=== PATIENT | female | born 1950 | race Caucasian/White ===

== ENCOUNTER → 2016-09-18 | Outpatient (CLI) | payer OTHER ==
[~2016-09-18] MED LIST: ALLERGY RELIEF1 EACH PO; AMLODIPINE BESYL5 MG PO; ASPIRIN81 M2 PO; CALCIUM 600 + D1 TA1 PO; CO Q10100 MG PO; COMBIVENT U/D3 M2 INH; GINKGO60 MG PO; LIPITOR40 MG PO; LISINOPRIL20 MG PO; MULTI VITAMIN1 EACH PO; NAPROSYN500 MG PO; OMEGA 3 FISH OI1 CAP PO; REQUIP0.5 MG PO; VITAMIN D1000 UNIT PO
--- NOTE | ~2016-09-18 | CT137 ---
[facility] A Service of [facility] RADIOLOGY TEXT RESULTS PATIENT: EBONY GONZALEZ LOCATION: [facility] : 50 UNIT #: [id number] AGE: [address]: Julius Webber MD SEX: F ORDER DR: [id number] [facility] [address] [place], [place] [address] [id number] O MR#: [id number] Acc #: [id number] NAME: EBONY GONZALEZ : 1950 SEX: F STUDY DATE/TIME: 09/18/2016 12:56 UNIT: [facility] ROOM: STUDY DESCRIPTION: CT Lung Screening annual Attending Physician: Julius Webber M.D. Referring Physician: Julius Webber M.D. Ordering Physician: Julius Webber M.D. Primary Care Physician: Julius Webber M.D. MEDICAL IMAGING REPORT This report is preliminary unless electronic signature is present EXAM CT chest INDICATION Lung cancer screening. 66-year-old female is a former smoker with a 51 pack year history of smoking. Less than 1 year smoking cessation. TECHNIQUE CT of the chest without contrast. Coronal and sagittal reconstructions were obtained. This CT exam was performed with one or more of the following radiation dose reduction techniques: automatic exposure control, adjustment of mA and/or kV according to patient size, and iterative reconstruction. COMPARISON CT chest, 07/12/2015 FINDINGS This is a benign lung cancer screening. There is a borderline enlarged right suprahilar lymph node measuring 0.9 cm in short axis. This is unchanged from the prior CT of 07/12/2015. No new pulmonary nodules. Central airways are patent. There is mild emphysema. No enlarged mediastinal lymph nodes. No pericardial or pleural effusion. Patient has subglandular silicone breast implants. IMPRESSION Benign lung cancer screening. ACR Lung-RADS 2: Benign examination. RECOMMENDATIONS [facility] A Service of [facility] RADIOLOGY TEXT RESULTS PATIENT: EBONY GONZALEZ LOCATION: [facility] : 50 UNIT #: [id number] AGE: [address]: Julius Webber MD SEX: F ORDER DR: Annual lung cancer screening with low-dose chest CT. No enlarged mediastinal nodes. No pericardial or pleural effusion. Thoracic aorta is normal in caliber. No acute osseous abnormalities. Dictated by... Lewis Brooke M.D. THIS IS AN ELECTRONICALLY VERIFIED REPORT Lewis Brooke M.D. at 09/19/2016 3:10 PM DEANNA/[place] TD: 09/19/2016 10:34 JOB #: [id number] MEDICAL IMAGING REPORT Page 1 of 1 COPY
== END | disposition home or self-care (01) ==
LOC: CCAT 12:31
DX: Z87.891 Personal history of nicotine dependence (principal)
CPT/HCPCS: G0297

== ENCOUNTER → 2016-10-21 | Outpatient (CLI) | payer OTHER ==
--- NOTE | ~2016-10-21 | XA30 ---
[facility] A Service of [facility] RADIOLOGY TEXT RESULTS PATIENT: EBONY GONZALEZ LOCATION: [facility] : 50 UNIT #: [id number] AGE: [address]: Edvin Granda MD SEX: F ORDER DR: [id number] [facility] [address] [place], [place] [address] [id number] O MR#: [id number] Acc #: [id number] NAME: EBONY GONZALEZ : 1950 SEX: F STUDY DATE/TIME: 10/21/2016 14:00 UNIT: [facility] ROOM: STUDY DESCRIPTION: XA Arthrocentesis Major Joint Attending Physician: Edvin Granda M.D. Referring Physician: Edvin Granda M.D. Ordering Physician: Edvin Granda M.D. Primary Care Physician: Julius Webber M.D. MEDICAL IMAGING REPORT This report is preliminary unless electronic signature is present PROCEDURE Fluoroscopically guided left hip joint injection. INDICATIONS Left hip pain, osteoarthritis. The fluoro time was 0.3 minutes. The reference air kerma is 23 mGy. Risks, benefits and alternatives of the procedure were discussed with the patient. Informed consent was obtained. In procedure room, time-out was performed confirming correct patient and procedure. All elements of maximum sterile-barrier technique utilized according to guidelines appropriate for the procedure. TECHNIQUE/FINDINGS Skin overlying the left hip was prepped and draped in the usual sterile fashion. 1% lidocaine was utilized to anesthetize the skin and underlying subcutaneous tissues. Next, under fluoroscopic guidance, a 22-gauge needle was advanced into the hip joint space. A small amount of contrast injected confirming satisfactory positioning. Next, 2 mL of 40 mg/mL Depo-Medrol followed by 3 mL of bupivacaine was injected into the hip joint space. Needle was removed and a sterile dressing was applied. No immediate complications. Pre-procedure pain 6, postprocedure pain 0. IMPRESSION Technically successful fluoroscopically guided left hip joint injection with steroid and local anesthetic. Dictated by... Caleb Marshall M.D. THIS IS AN ELECTRONICALLY VERIFIED REPORT Caleb Marshall M.D. at 10/22/2016 5:31 PM [facility] A Service of [facility] RADIOLOGY TEXT RESULTS PATIENT: EBONY GONZALEZ LOCATION: [facility] : 50 UNIT #: [id number] AGE: [address]: Edvin Granda MD SEX: F ORDER DR: Fermín TD: 10/22/2016 11:15 JOB #: [id number] MEDICAL IMAGING REPORT Page 1 of 1 COPY
== END | disposition home or self-care (01) ==
LOC: CIVR 13:48
PROC: 3E0U33Z Introduction of Anti-inflammatory into Joints, Percutaneous Approach (ICD-10-PCS; principal; 2016-10-21)
DX: M16.12 Unilateral primary osteoarthritis, left hip (principal)
CPT/HCPCS: 77002; J1030; Q9967

== ENCOUNTER → 2016-11-14 | Day surgery (SDC) | payer OTHER ==
--- NOTE | ~2016-11-14 | OR ---
Unit #: [id number] #: [id number] Patient: EBONY GONZALEZ [id number] [facility]. [place] [id number] [facility]. [place], [place] [address] [id number] O MR#: [id number] NAME: EBONY GONZALEZ ROOM: Date of Procedure: 11/14/2016 Admission Date: 11/14/2016 Surgeon: Everett Nice Jr., M.D. : 1950 Attending Physician: Everett Nice Jr., M.D. Primary Care Physician: Julius Webber M.D. OPERATIVE REPORT INDICATIONS FOR PROCEDURE The patient is a 66-year-old white female, who was recently referred to the office complaining of a nodular mass of the right upper arm posteriorly, this has been causing some discomfort and pain and slowly enlarging in size. She is brought in this time for excision of this under local anesthesia. PREOPERATIVE DIAGNOSIS Painful nodular mass of the right upper arm. POSTOPERATIVE DIAGNOSIS Painful nodular mass of the right upper arm noting approximately 1.5 to 2 cm mass with surrounding subcutaneous tissue. ANESTHESIA 1% Xylocaine with epinephrine locally. PROCEDURE PERFORMED Excision nodular mass, right upper outer arm. DESCRIPTION OF PROCEDURE The patient was positioned in left lateral decubitus position. After being prepped and draped in routine fashion, she was anesthetized locally in the area of the mass which was marked in the holding room. She was locally anesthetized with 1% Xylocaine with epinephrine. An elliptical incision was made around the mass with the incision being approximately 2 inch in length. This was carried down through subcutaneous tissue with a #10-blade scalpel down to the deeper subcutaneous tissue close to the fascia of the muscle. After the mass was removed, it was sent to pathology. Hemostasis was achieved with Bovie cautery. Deeper tissue approximated with interrupted 3-0 Vicryl sutures. Skin edges approximated with stainless-steel skin clips and skin stapling device. Sterile dressings were applied externally. Estimated blood loss minimal less than 20 mL. The patient received no fluids during the procedure. Sponges and instrument counts were correct x3. No drains used. No complications. The patient was taken to the recovery room with stable vital signs in satisfactory condition. Dictated by... Everett Nice Jr., M.D. Unit #: [id number] #: [id number] Patient: EBONY GONZALEZ/jett TD: 11/14/2016 11:30 JOB #: [id number] CC: Julius Webber M.D. OPERATIVE REPORT Page 1 of 1 X Everett Nice MD X PROCEDURE OPERATIVE NOTE
== END | disposition home or self-care (01) ==
LOC: CSUR 06:00
DX: L98.8 Other specified disorders of the skin and subcutaneous tissue (principal); M79.89 Other specified soft tissue disorders; J44.9 Chronic obstructive pulmonary disease, unspecified; I10 Essential (primary) hypertension; E78.00 Pure hypercholesterolemia, unspecified; E66.9 Obesity, unspecified; G25.81 Restless legs syndrome; Z90.710 Acquired absence of both cervix and uterus; Z79.82 Long term (current) use of aspirin; Z79.899 Other long term (current) drug therapy; Z79.52 Long term (current) use of systemic steroids; Z87.891 Personal history of nicotine dependence
CPT/HCPCS: 88305